=== PATIENT | male | born 1955 | race Caucasian/White ===

== ENCOUNTER 2021-10-08 07:08 | Emergency (ER) | payer OTHER, BC ==
[~2021-10-08] VITALS: Ht 185.4 cm; Wt 81.7 kg
[2021-10-08] MEDS ORDERED: HYDROCODON-ACE1 EAC7 PO (08:38)
[2021-10-08] MEDS ORDERED: FLEXERIL PO (08:38)
[2021-10-08 08:48] VITALS: BP 149/88
--- NOTE | 2021-10-08 10:03 | EKG ---
[place] [address] ELECTROCARDIOGRAM REPORT Name: KIYA ZARATE Room: [facility]#: [id number] Admission: 10/08/21 Attend Phys: Discharge: 10/08/21 Date of : 53 Date of Service: 10/08/21 0748 Report #: [id number] THIS REPORT FOR: //name// [facility] ED Test Date: 2021-10-08 Test Time: 07:48:21 Pat Name: KIYA ZARATE Department: Room: Gender: [employer] Operator: [facility] : 1955 Requested By: Memo Menard Order Number: [id number] MD: Fran Jules Measurements Intervals [place] Rate: 66 P: 72 RI: 198 QRS: 82 QRSD: 103 T: 66 QT: 411 QTc: 431 Interpretive Statements Sinus rhythm Probable left atrial enlargement Minor IVCD of the right eye No previous ECG available for comparison Electronically Signed On 10-08-2021 10:03:10 RN CIRCULATING by Fran Jules [email or web address] <ELECTRONICALLY SIGNED> By: Fran Jules MD, [facility] 10/08/21 1003 0748 0748 Fran Jules MD, [facility] /EPI
== END 2021-10-08 08:50 | disposition home or self-care (01) ==
LOC: M.ERS 07:08
DX: S46.912A Strain of unspecified muscle, fascia and tendon at shoulder and upper arm level, left arm, initial encounter (principal); F17.210 Nicotine dependence, cigarettes, uncomplicated; Z90.89 Acquired absence of other organs; X50.0XXA Overexertion from strenuous movement or load, initial encounter; Y93.89 Activity, other specified; Y92.89 Other specified places as the place of occurrence of the external cause; Y99.0 Civilian activity done for income or pay